=== PATIENT | male | born 1960 | race Caucasian/White ===

== ENCOUNTER 2024-02-03 07:41 | Emergency (ER) | payer OTHER ==
[~2024-02-03] VITALS: Ht 170.2 cm; Wt 70.0 kg
[2024-02-03 07:43] VITALS: BP 108/74; PULSE 66; RESP 14; O2SAT 96
[2024-02-03 07:56] VITALS: TEMP 98.9
[2024-02-03] MEDS: ACETAMINOPHEN 325MG TABLET PO STA (07:56)
[2024-02-03] MEDS: ONDANSETRON 4MG ODT PO STA (07:56)
[2024-02-03] MEDS ORDERED: ONDA4TAB11 PO (09:48)
== END 2024-02-03 11:25 | disposition home or self-care (01) ==
LOC: ER 07:41
DX: S02.2XXA Fracture of nasal bones, initial encounter for closed fracture (principal); S09.90XA Unspecified injury of head, initial encounter; E11.9 Type 2 diabetes mellitus without complications; I10 Essential (primary) hypertension; Y04.0XXA Assault by unarmed brawl or fight, initial encounter; Y93.89 Activity, other specified; Y92.89 Other specified places as the place of occurrence of the external cause; Y99.8 Other external cause status
CPT/HCPCS: 99284; 70450; 70486; Q0162